=== PATIENT | male | born 1995 | race African-American/Black ===

== ENCOUNTER 2021-07-24 23:26 | Emergency (ER) | payer OTHER ==
[~2021-07-24] VITALS: Ht 182.9 cm; Wt 204.1 kg
--- NOTE | 2021-07-24 23:36 | NUR ---
pt bibself c/o cough, sore throat x2 weeks and dizziness x today. Pt [id number] breathing evenly and unlabored. pt attached to monitor and pox. Pt given call light within reach. will continue to monitor
--- NOTE | 2021-07-25 00:01 | NUR ---
lab at bedside
--- NOTE | 2021-07-25 00:01 | NUR ---
xray at bedside
[2021-07-25 00:11] LABS: BASOPHILS % (AUTO) 0.7 % (0.0-2.0); EOSINOPHILS % (AUTO) 2.8 % (0.0-6.0); HEMATOCRIT 39 % (39-51); HEMOGLOBIN 12.8 g/dL (13.5-17.5); LYMPHOCYTES # (AUTO) 1.4 K/uL (0.8-4.8); LYMPHOCYTES % (AUTO) 25.4 % (20.0-44.0); MEAN CORPUSCULAR HGB CONC 33 g/dl (31.0-36.0); MEAN CORPUSCULAR VOLUME 87 fL (80-96); MONOCYTES # (AUTO) 0.8 K/uL (0.1-1.30); MONOCYTES % (AUTO) 14.9 % (2.0-12.0); NEUTROPHILS # (AUTO) 3.1 K/uL (1.8-8.9); NEUTROPHILS % (AUTO) 56.2 % (43.0-81.0); PLATELET COUNT (AUTO) 296 K/uL (150-450); RED BLOOD CELL COUNT(AUTO) 4.51 MIL/uL (4.5-6.0); WHITE BLOOD COUNT (AUTO) 5.6 K/uL (4.3-11.0)
[2021-07-25 00:30] LABS: CALCIUM, SERUM 8.7 mg/dL (8.5-10.1); CARBON DIOXIDE 31 mmol/L (21-32); CHLORIDE 105 mmol/L (98-107); CREATININE 1.1 mg/dL (0.6-1.3); GLUCOSE 116 mg/dL (74-106); POTASSIUM 3.9 mmol/L (3.5-5.1); SODIUM SERUM 140 mmol/L (136-145); UREA NITROGEN, BLOOD 11 mg/dL (7-18)
[2021-07-25] MEDS ORDERED: AZIT250T13 PO (01:30)
--- NOTE | 2021-07-25 01:35 | NUR ---
Patient discharged to home in stable condition. Written and verbal after care instructions given. Patient verbalizes understanding of instruction. Pt ambulatory with a steady gait
[2021-07-25 01:39] VITALS: BP 129/93
== END 2021-07-25 01:34 | disposition home or self-care (01) ==
LOC: ER 23:33
DX: R42 Dizziness and giddiness (principal); R05.9 Cough, unspecified; E66.01 Morbid (severe) obesity due to excess calories; I10 Essential (primary) hypertension; Z68.44 Body mass index [BMI] 60.0-69.9, adult; Z60.2 Problems related to living alone
CPT/HCPCS: 36415; 71045-TC; 80048-TC; 84484-TC; 85025-TC; 85378-TC